=== PATIENT | male | born 1980 | race Hispanic/Latino ===

== ENCOUNTER 2021-05-10 11:46 | Emergency (ER) | payer BC, OTHER ==
[2021-05-10 13:50] LABS: Urine Blood Negative (Negative); Urine Glucose Negative (Negative); Urine Protein 2+ (Negative); Urine Specific Gravity 1.025 (1.005-1.030)
[2021-05-10 14:42] LABS: Absolute Lymphocytes (CBC) 1.1 K/uL (0.7-4.9); Hematocrit 42.7 % (39.6-49.0); Lymphocytes % 16.1 % (15.3-44.8); RBC Red Blood Cell Count 4.73 M/uL (4.33-5.43)
[2021-05-10] MEDS ORDERED: NA CHLORIDE 0.9% 1,000 ML ONE (14:43)
[2021-05-10] MEDS ORDERED: ONDANSETRON 4 MG/2 ML VIAL ONE (14:43)
[2021-05-10 14:45] LABS: Protime INR 1.33
[2021-05-10 15:06] LABS: ALT/SGPT 41 U/L (12-78); AST/SGOT 39 U/L (15-37); Alkaline Phosphatase 61 U/L (45-117); BUN Blood Urea Nitrogen 12 mg/dL (7-18); Bicarbonate 32 mmol/L (21-32); Bilirubin Direct 0.3 mg/dL (0-0.2); Bilirubin Total 0.8 mg/dL (0.2-1.0); Glucose Level 103 mg/dL (74-106); Magnesium 2.6 mg/dL (1.8-2.4); Protein, Total 8.2 g/dL (6.4-8.2); Sodium Level 132 mmol/L (136-145)
[2021-05-10 15:07] LABS: NT PRO-BNP < 5 pg/mL (<125); Potassium 2.7 mmol/L (3.5-5.1)
--- NOTE | 2021-05-10 15:12 | RAD REPORT ---
EXAM DESCRIPTION: RAD - Chest Single View - 05/10/2021 2:59 pm CLINICAL HISTORY: CONGESTION, COVID symptoms, loss of taste and smell but with negative COVID test COMPARISON: None TECHNIQUE: AP portable chest image was obtained 05/10/2021 2:59 pm . FINDINGS: Lung volumes are low. Increased opacification is present at the left lung base. In the abs ence comparison, left base pneumonia is suspected. There is some patchy alveolar opacification in bot h lung wong that may be explained by the low lung volumes and body habitus affects. Heart size is magnified by pericardial fat and shallow inspiration affects. Vasculature within mj l limits for low lung volume study. Trachea is midline. No measurable pleural effusion and no pneumothorax. No acute bony abnormality seen. No acute aortic findings suspected. IMPRESSION: Exam is limited by low lung volumes and body habitus affects. Left base opacification is suspicious for pneumonia and can be correlated with symptoms. Chest findings are not specific for COVID-19 pneumonia. Provided history indicated a negative COVID t est. Continued, unexplained symptoms or ongoing concerns for a COVID-19 process can be further addres sed with contrast CT chest study to evaluate for commonly seen COVID-19 pneumonia findings.
[2021-05-10 15:15] LABS: Troponin (Emerg Dept Use Only) < 0.02 ng/mL (0.0-0.045)
[2021-05-10] MEDS ORDERED: POTASSIUM 25 MEQ EFFERV TAB ONE (15:16)
[2021-05-10] MEDS ORDERED: NA CHLORIDE 0.9% 500 ML ONE (15:16)
[2021-05-10] MEDS ORDERED: KCL 20 MEQ/100 mL IVPB 100 ML IV ONE (15:16)
[2021-05-10 15:18] LABS: SARS-COV-2 RT PCR POSITIVE (NEGATIVE)
[2021-05-10] MEDS ORDERED: ACETAMINOPHEN 500 MG TAB ONE (15:31)
--- NOTE | 2021-05-10 15:40 | ER ---
Nurse's Notes [facility] Name: Americo Mahoney Age: 41 yrs Sex: Male : 1980 Arrival Date: 05/10/2021 Time: 11:51 Bed Treatment Private MD: Diagnosis: Other pneumonia, unspecified organism-COVID - 19 Presentation: 05/10 13:18 Chief complaint: Patient states: cough, congestion, loss of taste and appetite, NV for vg1 about two weeks. States had a covid test about four days ago and results were negative. Also has been exposed to 'black mold' that was in his office a/c unit. Coronavirus screen: Vaccine status: Patient reports being unvaccinated. Client denies travel out of the [place] in the last 14 days. Client presents with at least one sign or symptom that may indicate coronavirus-19. Standard/surgical mask placed on the client. Ebola Screen: Patient negative for fever greater than or equal to 101.5 degrees Fahrenheit, and additional compatible Ebola Virus Disease symptoms. Onset of symptoms was April 28, 2021. 13:18 Method Of Arrival: Wheelchair vg1 13:18 Acuity: GILMER 3 vg1 Triage Assessment: 13:23 General: Appears in no apparent distress. uncomfortable, Behavior is calm, cooperative. vg1 Pain: Denies pain. Neuro: Level of Consciousness is awake, alert, obeys commands, Oriented to person, place, time, situation. Historical: - Allergies: 13:22 No Known Allergies; vg1 - Home Meds: 13:22 None [Active]; vg1 - PMHx: 13:22 None; vg1 - Immunization history:: Client reports having NOT received the Covid vaccine. - Social history:: Smoking status: Patient/guardian denies using tobacco, Stopped _ months ago 1 Patient/guardian denies using alcohol, street drugs, The patient lives with family. - Family history:: not pertinent. Screenin:37 Abuse screen: Denies threats or abuse. Denies injuries from another. Nutritional iw screening: Has had N/V for 3 or more days. Tuberculosis screening: No symptoms or risk factors identified. Fall Risk IV access (20 points). Assessment: 14:37 General: Appears in no apparent distress. Behavior is calm, cooperative. Neuro: Level iw of Consciousness is awake, alert, obeys commands, Oriented to person, place, time, situation, Moves all extremities. 15:08 Reassessment: Dr. Quiros notified of critical lab value 2.7. ss 18:04 Reassessment: Patient appears in no apparent distress at this time. pt SpO2 down to iw 87%, Dr. Quiros notified, will reassess pt Patient states feeling better. Vital Signs: 13:18 BP 122 / 80; Pulse 106; Resp 20; Temp 99.6; Pulse Ox 92% ; Weight 113.4 kg; Height 5 vg1 ft. 7 in. (170.18 cm); Pain 0/10; 15:29 BP 120 / 68; Pulse 100; Resp 18; Temp 102.5; Pulse Ox 91% on R/A; iw 16:36 Temp 99.2(O); iw 13:18 Body Mass Index 39.16 (113.40 kg, 170.18 cm) vg1 ED Course: 11:51 Patient arrived in ED. ds1 13:22 Triage completed. vg1 13:23 Arm band placed on. vg1 14:14 Denise Solorzano, RN is Primary Nurse. iw 14:17 Cynthia Quiros MD is Attending Physician. ma2 14:36 Inserted saline lock: 22 gauge in right antecubital area, using aseptic technique. iw Blood collected. 14:59 XRAY Chest (1 view) In Process Unspecified. EDMS 18:04 Patient has correct armband on for positive identification. iw Administered Medications: 14:52 Drug: NS 0.9% 1000 ml Route: IV; Rate: 1 bolus; Site: right antecubital; iw 16:00 Follow up: IV Status: Completed infusion iw 14:52 Drug: Zofran (Ondansetron) 4 mg Route: IVP; Site: right antecubital; iw 15:20 Follow up: Response: No adverse reaction iw 15:29 Drug: Potassium Chloride 20 mEq Route: IV; Rate: calculated rate; Site: right iw antecubital; 17:30 Follow up: IV Status: Completed infusion iw 15:33 Drug: Klor-Con (potassium) Effervescent Tablet 50 mEq Route: PO; iw 15:45 Follow up: Response: No adverse reaction iw 15:33 Drug: Tylenol 1000 mg Route: PO; iw 15:45 Follow up: Response: No adverse reaction iw Outcome: 15:39 Discharge ordered by MD. ramirez 18:49 Patient left the ED. kj1 Signatures: Dispatcher [employer] ED Tash Lamb Denise Sage, RN RN Jinny Agee RN RN Cynthia Lemus MD MD ma2 Jackson, Kandis kj1 Violet Falcon RN RN vg1 Corrections: (The following items were deleted from the chart) 13:25 13:18 Chief complaint: Patient states: cough, congestion, loss of taste and appetite, vg1 NV for about two weeks. States had a covid test about four days ago and results were negative. vg1
--- NOTE | 2021-05-10 15:40 | EDPHYS ---
Physician Documentation [facility] Name: Americo Mahoney Age: 41 yrs Sex: Male : 1980 Arrival Date: 05/10/2021 Time: 11:51 Bed Treatment Private MD: ED Physician Cynthia May HPI: 05/10 14:24 This 41 yrs old Male presents to ER via Wheelchair with complaints of ma2 Weakness, Unable to keep food down. 14:24 Onset: The symptoms/episode began/occurred gradually, 12 day(s) ago. Associated signs ma2 and symptoms: Pertinent negatives: chills, headache, neck stiffness, loss of vision. Severity of symptoms: At their worst the symptoms were mild in the emergency department the symptoms are unchanged. The patient has experienced similar episodes in the past. Historical: - Allergies: 13:22 No Known Allergies; vg1 - Home Meds: 13:22 None [Active]; vg1 - PMHx: 13:22 None; vg1 - Immunization history:: Client reports having NOT received the Covid vaccine. - Social history:: Smoking status: Patient/guardian denies using tobacco, Stopped _ months ago 1 Patient/guardian denies using alcohol, street drugs, The patient lives with family. - Family history:: not pertinent. ROS: 14:24 Constitutional: Negative for fever, chills, and weight loss. ma2 14:24 All other systems are negative. Exam: 14:24 Constitutional: This is a well developed, well nourished patient who is awake, alert, ma2 and in no acute distress. Head/Face: Normocephalic, atraumatic. Eyes: Pupils equal round and reactive to light, extra-ocular motions intact. Lids and lashes normal. Conjunctiva and sclera are non-icteric and not injected. Cornea within normal limits. Periorbital areas with no swelling, redness, or edema. ENT: Nares patent. No nasal discharge, no septal abnormalities noted. Tympanic membranes are normal and external auditory canals are clear. Oropharynx with no redness, swelling, or masses, exudates, or evidence of obstruction, uvula midline. Mucous membranes moist. Neck: Trachea midline, no thyromegaly or masses palpated, and no cervical lymphadenopathy. Supple, full range of motion without nuchal rigidity, or vertebral point tenderness. No Meningismus. Chest/axilla: Normal chest wall appearance and motion. Nontender with no deformity. No lesions are appreciated. Cardiovascular: Regular rate and rhythm with a normal S1 and S2. No gallops, murmurs, or rubs. Normal PMI, no JVD. No pulse deficits. Respiratory: Lungs have equal breath sounds bilaterally, clear to auscultation and percussion. No rales, rhonchi or wheezes noted. No increased work of breathing, no retractions or nasal flaring. Abdomen/GI: Soft, non-tender, with normal bowel sounds. No distension or tympany. No guarding or rebound. No evidence of tenderness throughout. Back: No spinal tenderness. No costovertebral tenderness. Full range of motion. Skin: Warm, dry with normal turgor. Normal color with no rashes, no lesions, and no evidence of cellulitis. MS/ Extremity: Pulses equal, no cyanosis. Neurovascular intact. Full, normal range of motion. Neuro: Awake and alert, GCS 15, oriented to person, place, time, and situation. Cranial nerves II-XII grossly intact. Motor strength 5/5 in all extremities. Sensory grossly intact. Cerebellar exam normal. Normal gait. Vital Signs: 13:18 BP 122 / 80; Pulse 106; Resp 20; Temp 99.6; Pulse Ox 92% ; Weight 113.4 kg; Height 5 vg1 ft. 7 in. (170.18 cm); Pain 0/10; 15:29 BP 120 / 68; Pulse 100; Resp 18; Temp 102.5; Pulse Ox 91% on R/A; iw 16:36 Temp 99.2(O); iw 13:18 Body Mass Index 39.16 (113.40 kg, 170.18 cm) vg1 MDM: 14:17 Patient medically screened. ma2 14:24 Data reviewed: vital signs, nurses notes, EMS record. Counseling: I had a detailed ma2 discussion with the patient and/or guardian regarding: the historical points, exam findings, and any diagnostic results supporting the discharge/admit diagnosis, the presence of at least one elevated blood pressure reading (>120/80) during this emergency department visit, lab results, radiology results, the need for outpatient follow up. Response to treatment: the patient's symptoms have markedly improved after treatment. 18:16 ED course: oxygen saturation is 91 on room air. I explained to the patient that since ri2 case management not able to arrange for home oxygen at this time. I offered admission. However patient would like to be discharged he will return to ER if symptoms get worse.. 05/10 13:25 Order name: COVID-19/FLU A+B (Document "Date of Onset" if Symptomatic); Complete Time: vg1 15:37 05/10 13:50 Order name: Urine Dipstick-Ancillary; Complete Time: 14:17 EDMS 05/10 14:24 Order name: Basic Metabolic Panel; Complete Time: 15:18 [facility] 05/10 14:24 Order name: CBC with Diff; Complete Time: 14:59 [facility] 05/10 14:24 Order name: LFT's; Complete Time: 15:18 [facility] 05/10 14:24 Order name: Magnesium; Complete Time: 15:18 [facility] 05/10 14:24 Order name: NT PRO-BNP; Complete Time: 15:18 [facility] 05/10 14:24 Order name: PT-INR; Complete Time: 14:59 ri05/10 14:24 Order name: Troponin (emerg Dept Use Only); Complete Time: 15:18 [facility] 05/10 14:24 Order name: XRAY Chest (1 view); Complete Time: 15:18 ri2 05/10 14:24 Order name: Cardiac monitoring [facility] 05/10 14:24 Order name: EKG - Nurse/Tech [facility] 05/10 14:24 Order name: IV Saline Lock; Complete Time: 14:36 [facility] 05/10 14:24 Order name: Labs collected and sent; Complete Time: 14:36 [facility] 05/10 14:24 Order name: O2 Per Protocol; Complete Time: 14:36 [facility] 05/10 14:24 Order name: O2 Sat Monitoring; Complete Time: 14:36 ma2 Administered Medications: 14:52 Drug: NS 0.9% 1000 ml Route: IV; Rate: 1 bolus; Site: right antecubital; iw 16:00 Follow up: IV Status: Completed infusion iw 14:52 Drug: Zofran (Ondansetron) 4 mg Route: IVP; Site: right antecubital; iw 15:20 Follow up: Response: No adverse reaction iw 15:29 Drug: Potassium Chloride 20 mEq Route: IV; Rate: calculated rate; Site: right iw antecubital; 17:30 Follow up: IV Status: Completed infusion iw 15:33 Drug: Klor-Con (potassium) Effervescent Tablet 50 mEq Route: PO; iw 15:45 Follow up: Response: No adverse reaction iw 15:33 Drug: Tylenol 1000 mg Route: PO; iw 15:45 Follow up: Response: No adverse reaction iw Disposition Summary: 05/10/21 15:39 Discharge Ordered Location: Home ma2 Condition: Stable ma2 Diagnosis - Other pneumonia, unspecified organism - COVID - 19 ma2 Followup: ma2 - With: Private Physician - When: Tomorrow - Reason: If symptoms return, Continuance of care Discharge Instructions: - Discharge Summary Sheet ma2 - COVID-19 Frequently Asked Questions ma2 Forms: - Medication Reconciliation Form ma2 - Thank You Letter ma2 - Antibiotic Education ma2 - Prescription Opioid Use ma2 Prescriptions: - Zofran 4 mg Oral Tablet - take 1 tablet by ORAL route every 12 hours As needed; 20 tablet; Refills: 0, ma2 Product Selection Permitted - Diclofenac Sodium 75 mg Oral Tablet Sustained Release - take 1 tablet by ORAL route 2 times per day; 30 tablet; Refills: 0, Product ma2 Selection Permitted - Zithromax Z-Renato 250 mg Oral Tablet - take 1 tablet by ORAL route as directed for 5 days Day 1 - take two (2) tablets ma2 one time. Day 2, 3, 4 , 5 take one (1) tablet once daily.; 6 tablet; Refills: 0, Product Selection Permitted - Potassium Chloride 20 meq Oral Packet - take 1 packet by ORAL route once daily 1 packet in 6 (six) ounces of water or ma2 juice; Take after meal; 30 packet; Refills: 0, Product Selection Permitted - Medrol (Renato) 4 mg Oral Tablets, Dose Pack - take 1 tablet by ORAL route as directed - follow package instructions; 1 ma2 packet; Refills: 0, Product Selection Permitted Signatures: Dispatcher [employer] Denise Bhakta, RN RN iw Cynthia May MD MD ma2 Violet Falcon RN RN vg1
[2021-05-10 18:56] VITALS: BP 120/68; TEMP 99.2; O2SAT 91
== END 2021-05-10 18:49 | disposition home or self-care (01) ==
LOC: ER 11:46
DX: U07.1 COVID-19 (principal); J12.82 Pneumonia due to coronavirus disease 2019
CPT/HCPCS: 96365; 96361; 85025; 80048; 36415; 83735; 85610; 80076; 81003; 84484; 83880; 0240U; 71045; 96375; 99284; 96366; J3480; J7040; J7030; J2405

== ENCOUNTER 2022-08-27 15:19 | Emergency (ER) | payer OTHER, SELFPAY ==
[2022-08-27 15:44] LABS: Absolute Lymphocytes (CBC) 2.5 K/uL (0.7-4.9); Hematocrit 45.2 % (39.6-49.0); MCV 90.2 fL (80-100); MPV 7.6 fL (7.6-11.3); RBC Red Blood Cell Count 5.01 M/uL (4.33-5.43)
[2022-08-27 16:01] LABS: Potassium 3.3 mEq/L (3.5-5.1)
[2022-08-27] MEDS ORDERED: MORPHINE 4 MG/ML SYR ONE (16:13)
[2022-08-27] MEDS ORDERED: TETANUS & DIPHTHERIA TOX,ADULT 0.5 ML VIAL ONE (16:13)
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
[2022-08-27] MEDS ORDERED: KETOROLAC 30 MG/ML INJ ONE (16:35)
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
[2022-08-27 18:06] VITALS: TEMP 98.5
[2022-08-27 18:10] VITALS: BP 119/68; O2SAT 100
== END 2022-08-27 17:25 | disposition home or self-care (01) ==
LOC: ER 15:19
DX: S22.41XA Multiple fractures of ribs, right side, initial encounter for closed fracture (principal); S50.812A Abrasion of left forearm, initial encounter; S50.811A Abrasion of right forearm, initial encounter; S80.211A Abrasion, right knee, initial encounter; V28.09XA Other motorcycle driver injured in noncollision transport accident in nontraffic accident, initial encounter
CPT/HCPCS: 36415; 70450; 71045; 71260; 72125; 74177; 80048; 85025; 86850; 86900; 86901; 90471; 90714; 96374; 96375; 99285; Q9967